=== PATIENT | male | born 1960 | race Caucasian/White ===

== ENCOUNTER → 2023-05-19 12:37 | Day surgery (SDC) | payer MEDICARE, OTHER, SELFPAY ==
[2023-05-19 10:55] VITALS: BP 153/90; PULSE 64; RESP 16; TEMP 36.2; O2SAT 97; BMI 31.9
[2023-05-19] MEDS: LACTATED RINGER'S SOLUTION 1,000 ML 50 ML IV (10:55)
--- NOTE | 2023-05-19 11:54 | OP_ITS ---
OPERATION DATE: ??05/19/2023 PREOPERATIVE DIAGNOSIS:? Positive Cologuard and personal history of colon polyps. POSTOPERATIVE DIAGNOSIS:? Sigmoid colon polyp. PROCEDURE:? Colonoscopy to cecum with cold snare polypectomy x1 for sigmoid polyp. SURGEON:? Dago Genao M.D. ANESTHESIA:? Monitored anesthesia care. ESTIMATED BLOOD LOSS:? Less than 1 mL. INDICATIONS AND CONSENT:? Patient is a 62-year-old male presents for colonoscopy due to positive Cologuard and personal history of colon polyps.? Indications, risks, benefits, alternatives of proceeding with colonoscopy were explained extensively to the patient, including the risks of bleeding, colon perforation or anesthetic complications.? All of his questions were answered.? Informed consent was obtained. PROCEDURE:? Patient brought to the operating room, placed in the left lateral decubitus position.? Monitored anesthesia care was provided.? Rectal exam was performed which showed no masses or blood.? The scope was inserted into the anal canal.? Under direct visualization was advanced. It was advanced to the cecum where cecal markings were clearly identified.? There was noted to be a good prep.? Upon withdrawal of the scope, mucosal surfaces were carefully examined.? There were no mass lesions or inflammatory changes.? No significant diverticulosis.? Within the sigmoid colon, there was noted to be a 4 mm sessile polyp that was removed with cold snare with good hemostasis.?? The scope was retroflexed in the anal canal.? There were noted to be some prominent rectal veins.? No significant hemorrhoidal disease.? Scope was then withdrawn.? Patient tolerated procedure well, was sent to recovery room in good condition. f/u coloscopy likely in 5 years, but depends on pathology report. CC:? Peterson Rob M.D. PACO
[2023-05-19 11:55] VITALS: BP 107/59; PULSE 53; RESP 14; TEMP 36.3; O2SAT 96
[2023-05-19 12:10] VITALS: BP 119/67; PULSE 56; RESP 16; O2SAT 97
[2023-05-19 12:25] VITALS: BP 159/83; PULSE 53; RESP 18; O2SAT 98
== END | disposition home or self-care (01) ==
PROVIDERS: PCP Family Medicine; Visit Provider Surgery
PROC: (CPT 45385; principal; 2023-05-19 13:00)
DX: D12.5 Benign neoplasm of sigmoid colon (principal); R19.5 Other fecal abnormalities; Z86.010 Personal history of colon polyps; I10 Essential (primary) hypertension; E78.5 Hyperlipidemia, unspecified; N40.1 Benign prostatic hyperplasia with lower urinary tract symptoms; Z79.899 Other long term (current) drug therapy; Z87.891 Personal history of nicotine dependence
CPT/HCPCS: 45385; 88305; J2704